=== PATIENT | male | born 1945 | race Caucasian/White ===

== ENCOUNTER 2022-05-02 11:08 | Day surgery (SDC) | payer MEDICARE, BC ==
[2022-04-27 12:04] LABS: BASOPHILS % (AUTO) 0.2 % (0-1); EOSINOPHILS # (AUTO) 0.1 X10'3 (0-0.9); EOSINOPHILS % (AUTO) 0.9 % (0-6); HEMATOCRIT 31.7 % (42.0-52.0); HEMOGLOBIN 9.9 g/dl (14.0-17.9); LYMPHOCYTES # (AUTO) 1.1 X10'3 (1.1-4.8); LYMPHOCYTES % (AUTO) 15.4 % (21-51); MEAN CORPUSCULAR HEMOGLOBIN 25.9 PG (27.0-31.0); MEAN CORPUSCULAR HGB CONC 31.1 g/dL (33.0-36.5); MEAN CORPUSCULAR VOLUME 83.1 FL (78-98); MEAN PLATELET VOLUME 7.1 FL (7.4-10.4); MONOCYTES # (AUTO) 0.4 X10'3 (0-0.9); MONOCYTES % (AUTO) 5.9 % (2-12); NEUTROPHILS # (AUTO) 5.4 X10'3 (1.8-7.7); NEUTROPHILS % (AUTO) 77.6 % (42-75); PLATELET COUNT 185 X10'3 (140-440); RED BLOOD COUNT 3.82 X10'6 (4.70-6.10); RED CELL DISTRIBUTION WIDTH 17.1 % (11.5-14.5)
[2022-04-27 12:18] LABS: APTT 25 SECONDS (22-32)
[2022-04-27 12:25] LABS: ALBUMIN 2.9 G/DL (3.4-5.0); ANION GAP 4 (8-16); BLOOD UREA NITROGEN 9 MG/DL (7-18); BUN/CREATININE RATIO 9.2 (5.4-32.0); CALCIUM 9.2 MG/DL (8.5-10.1); CHLORIDE 100 MMOL/L (99-107); CHOLESTEROL 159 MG/DL (0-200); CREATININE 0.98 MG/DL (0.60-1.10); GLUCOSE 87 MG/DL (70-104); HDL CHOLESTEROL 53 MG/DL (35-60); LDL CHOLESTEROL 94 MG/DL (50-100); POTASSIUM 3.9 MMOL/L (3.5-5.1); SODIUM 134 MMOL/L (135-145); TOTAL CARBON DIOXIDE 30.5 MMOL/L (24-32); TRIGLYCERIDES 87 MG/DL (20-135); eGFR 75 ML/MIN
[~2022-05-02] VITALS: Ht 175.3 cm; Wt 89.8 kg
[~2022-05-02 11:08] MED LIST: CITA-311 PO; ENZA40CA PO; GABA-530 PO; IRBE75TA8 PO
[2022-05-02 11:19] VITALS: BP 146/47
[2022-05-02] MEDS ORDERED: normal saline 1,000 ML IV SCH (11:40)
[2022-05-02] MEDS ORDERED: LORazepam 0.5 MG tablet PO PRN (11:40)
[2022-05-02] MEDS ORDERED: diphenhydrAMINE 25mg capsule PO PRN (11:40)
[2022-05-02] MEDS ORDERED: IRBE150T24 PO (11:46)
[2022-05-02] MEDS ORDERED: ESCI5TAB17 PO (11:46)
[2022-05-02] MEDS ORDERED: heparin 1,000unit/ml 10ml vial 10 ML ONE (12:25)
[2022-05-02] MEDS ORDERED: LIDOcaine 1% (10mg/ml) 2ml vial ONE (12:25)
[2022-05-02] MEDS ORDERED: iohexol 350MG/ML 100ml bottle IV ONE (12:25)
[2022-05-02] MEDS ORDERED: verapamil 2.5 mg/ml inj IV ONE (12:26)
[2022-05-02] MEDS ORDERED: nitroGLYCERIN-Tridil 50MG/D5W 250 ML IV ONE (12:26)
[2022-05-02] MEDS ORDERED: fentaNYL/PF 50MCG/1 ML 2ML syringe ONE (12:26)
[2022-05-02] MEDS ORDERED: midazolam 1 mg/ML 2ml injection ONE (12:26)
[2022-05-02 14:11] VITALS: BP 132/66
[2022-05-02] MEDS ORDERED: HYDROcodone/acetaminophen 10/325mg tab PO PRN (14:20)
[2022-05-02] MEDS ORDERED: HYDROcodone/acetaminophen 5mg/325mg tablet PO PRN (14:20)
[2022-05-02 14:30] VITALS: BP 141/67
[2022-05-02 14:45] VITALS: BP 127/69
[2022-05-02 15:00] VITALS: BP 113/54
[2022-05-02 15:19] VITALS: BP 136/80
[2022-05-03 06:29] LABS: ISTAT HGB ART 8.8 g/dl (14.0-17.9); ISTAT Hct ART 26 %PCV (42-52); ISTAT O2 SATURATION ARTERIAL 95 % (95-98); ISTAT SOURCE BLNK
[2022-05-03 06:29] LABS: ISTAT Hct MIX 28 %PCV (42-52); ISTAT O2 SATURATION MIX VENOUS 65 % (60-80); ISTAT SOURCE OTHER
== END 2022-05-02 16:10 | disposition home or self-care (01) ==
LOC: SSTAY O 11:08
PROVIDERS: ATTEND Student in an Organized Health Care Education/Training Program
DX: I35.0 Nonrheumatic aortic (valve) stenosis (principal); Z79.899 Other long term (current) drug therapy; I10 Essential (primary) hypertension; E11.9 Type 2 diabetes mellitus without complications; Z79.01 Long term (current) use of anticoagulants
CPT/HCPCS: 36415; 80048; 80061; 82803; 82948; 85014; 85025; 85610; 85730; 93005; 93456; 99152; 99153; C1769; C1894; J1644; J2250; J3010; J3490; J7030; Q0163; Q9967; A6258; A6402; C1751

== ENCOUNTER 2022-06-07 11:40 | Outpatient (CLI) | payer MEDICARE, BC ==
[~2022-06-07 11:40] MED LIST changes: -CITA-311 PO; +ESCI5TAB17 PO; +IRBE150T24 PO; -IRBE75TA8 PO
[2022-06-07 12:10] LABS: BASOPHILS % (AUTO) 0.6 % (0-1); EOSINOPHILS # (AUTO) 0.1 X10'3 (0-0.9); EOSINOPHILS % (AUTO) 1.6 % (0-6); HEMATOCRIT 37.3 % (42.0-52.0); HEMOGLOBIN 11.9 g/dl (14.0-17.9); LYMPHOCYTES % (AUTO) 17.1 % (21-51); MEAN CORPUSCULAR HGB CONC 31.9 g/dL (33.0-36.5); MEAN CORPUSCULAR VOLUME 84.7 FL (78-98); MEAN PLATELET VOLUME 7.2 FL (7.4-10.4); MONOCYTES # (AUTO) 0.4 X10'3 (0-0.9); MONOCYTES % (AUTO) 7.5 % (2-12); NEUTROPHILS # (AUTO) 4.2 X10'3 (1.8-7.7); NEUTROPHILS % (AUTO) 73.2 % (42-75); PLATELET COUNT 187 X10'3 (140-440); RED CELL DISTRIBUTION WIDTH 20.3 % (11.5-14.5); WHITE BLOOD COUNT 5.8 X10'3 (4.5-11.0)
[2022-06-07 12:21] LABS: APTT 27 SECONDS (22-32)
[2022-06-07 12:26] LABS: ALANINE AMINOTRANSFERASE 13 U/L (12-78); ALBUMIN 3.3 G/DL (3.4-5.0); ALBUMIN/GLOBULIN RATIO 0.7 (1.1-1.5); ALKALINE PHOSPHATASE 89 IU/L (46-116); ANION GAP 6 (8-16); ASPARTATE AMINO TRANSFERASE 24 U/L (10-37); BILIRUBIN,TOTAL 0.6 MG/DL (0.1-1.0); BLOOD UREA NITROGEN 7 MG/DL (7-18); BUN/CREATININE RATIO 7.3 (5.4-32.0); CALCIUM 8.7 MG/DL (8.5-10.1); CHLORIDE 100 MMOL/L (99-107); CREATININE 0.96 MG/DL (0.60-1.10); GLUCOSE 114 MG/DL (70-104); POTASSIUM 4.4 MMOL/L (3.5-5.1); SODIUM 136 MMOL/L (135-145); TOTAL CARBON DIOXIDE 30.2 MMOL/L (24-32); eGFR 76 ML/MIN
[2022-06-07] MEDS ORDERED: IODIXANOL 320 MG/ML INFUS..BTL 100ML IV ONE (12:52)
[2022-06-07 12:57] LABS: ANISOCYTOSIS 3+; PLATELET ESTIMATE NORMAL; TEAR DROP CELLS FEW
== END 2022-06-07 23:59 | disposition home or self-care (01) ==
LOC: RAD 11:40
PROVIDERS: ATTEND Internal Medicine Cardiovascular Disease
DX: N40.0 Benign prostatic hyperplasia without lower urinary tract symptoms (principal); R91.1 Solitary pulmonary nodule; R16.0 Hepatomegaly, not elsewhere classified; K76.0 Fatty (change of) liver, not elsewhere classified; N28.1 Cyst of kidney, acquired; I35.0 Nonrheumatic aortic (valve) stenosis; R06.02 Shortness of breath; I65.29 Occlusion and stenosis of unspecified carotid artery; I70.0 Atherosclerosis of aorta; I25.10 Atherosclerotic heart disease of native coronary artery without angina pectoris; R16.1 Splenomegaly, not elsewhere classified; K57.30 Diverticulosis of large intestine without perforation or abscess without bleeding; K40.90 Unilateral inguinal hernia, without obstruction or gangrene, not specified as recurrent; K42.9 Umbilical hernia without obstruction or gangrene; M47.815 Spondylosis without myelopathy or radiculopathy, thoracolumbar region; M47.817 Spondylosis without myelopathy or radiculopathy, lumbosacral region
CPT/HCPCS: 36415; 71046; 71275; 74174; 80053; 85008; 85025; 85610; 85730; 94010; 94727; 94729; J3490; Q9967; 82550; 82948; 96365; 96366; 96375; 99284; J2060; J3475; J7030

== ENCOUNTER 2022-06-07 15:14 | Emergency (ER) | payer MEDICARE, OTHER, BC ==
[2022-06-07] MEDS ORDERED: normal saline 1000ML IV soln IVB ONE (15:25)
[2022-06-07] MEDS ORDERED: magnesium 2GM in 50ml NS 50 ML IV ONE (15:25)
[2022-06-07] MEDS ORDERED: LORazepam 2 mg/ml vial IV ONE (15:25)
[2022-06-07 16:00] LABS: BASOPHILS % (AUTO) 0.3 % (0-1); EOSINOPHILS # (AUTO) 0.1 X10'3 (0-0.9); EOSINOPHILS % (AUTO) 2.1 % (0-6); HEMATOCRIT 35.7 % (42.0-52.0); HEMOGLOBIN 11.6 g/dl (14.0-17.9); LYMPHOCYTES # (AUTO) 0.9 X10'3 (1.1-4.8); LYMPHOCYTES % (AUTO) 19.5 % (21-51); MEAN CORPUSCULAR HEMOGLOBIN 27.4 PG (27.0-31.0); MEAN CORPUSCULAR HGB CONC 32.6 g/dL (33.0-36.5); MEAN PLATELET VOLUME 7.1 FL (7.4-10.4); MONOCYTES # (AUTO) 0.3 X10'3 (0-0.9); MONOCYTES % (AUTO) 6.3 % (2-12); NEUTROPHILS # (AUTO) 3.4 X10'3 (1.8-7.7); NEUTROPHILS % (AUTO) 71.8 % (42-75); PLATELET COUNT 176 X10'3 (140-440); RED BLOOD COUNT 4.25 X10'6 (4.70-6.10); RED CELL DISTRIBUTION WIDTH 19.8 % (11.5-14.5); WHITE BLOOD COUNT 4.8 X10'3 (4.5-11.0)
[2022-06-07 16:07] LABS: ALANINE AMINOTRANSFERASE 14 U/L (12-78); ALBUMIN 3.2 G/DL (3.4-5.0); ALBUMIN/GLOBULIN RATIO 0.7 (1.1-1.5); ALKALINE PHOSPHATASE 85 IU/L (46-116); ANION GAP 6 (8-16); ASPARTATE AMINO TRANSFERASE 16 U/L (10-37); BILIRUBIN,TOTAL 0.7 MG/DL (0.1-1.0); BLOOD UREA NITROGEN 6 MG/DL (7-18); BUN/CREATININE RATIO 6.7 (5.4-32.0); CALCIUM 8.9 MG/DL (8.5-10.1); CHLORIDE 97 MMOL/L (99-107); CREATININE 0.89 MG/DL (0.60-1.10); GLUCOSE 144 MG/DL (70-104); POTASSIUM 4.1 MMOL/L (3.5-5.1); SODIUM 133 MMOL/L (135-145); TOTAL CARBON DIOXIDE 29.6 MMOL/L (24-32); TOTAL PROTEIN 7.8 G/DL (6.4-8.2); eGFR 83 ML/MIN
[2022-06-07 16:08] LABS: CREATINE KINASE 34 U/L (39-308)
[2022-06-07 18:33] VITALS: BP 138/78
== END 2022-06-07 18:36 | disposition home or self-care (01) ==
LOC: ER 15:14
DX: G40.909 Epilepsy, unspecified, not intractable, without status epilepticus (principal); I10 Essential (primary) hypertension
CPT/HCPCS: 36415; 80053; 82550; 82948; 85025; 96365; 96366; 96375; 99284; J2060; J3475; J7030

== ENCOUNTER 2022-07-27 07:24 | Inpatient (IN) | payer MEDICARE, BC ==
[2022-07-21 15:29] LABS: BASOPHILS % (AUTO) 0.4 % (0-1); EOSINOPHILS # (AUTO) 0.1 X10'3 (0-0.9); EOSINOPHILS % (AUTO) 2.4 % (0-6); LYMPHOCYTES # (AUTO) 0.9 X10'3 (1.1-4.8); MEAN CORPUSCULAR HEMOGLOBIN 29.2 PG (27.0-31.0); MEAN CORPUSCULAR HGB CONC 32.9 g/dL (33.0-36.5); MEAN CORPUSCULAR VOLUME 88.7 FL (78-98); MEAN PLATELET VOLUME 6.9 FL (7.4-10.4); MONOCYTES # (AUTO) 0.3 X10'3 (0-0.9); MONOCYTES % (AUTO) 6.3 % (2-12); NEUTROPHILS # (AUTO) 3.3 X10'3 (1.8-7.7); NEUTROPHILS % (AUTO) 71.9 % (42-75); PRE OP HEMOGLOBIN 11.2 g/dL (14.0-17.9); PRE OP PLATELET COUNT 145 X10'3 (140-440); RED BLOOD COUNT 3.83 X10'6 (4.70-6.10)
[2022-07-21 15:36] LABS: PRE OP INR 1.1 INR; PRE OP PROTIME 11.4 SECONDS (9.0-12.0)
[2022-07-21 15:37] LABS: HEMOGLOBIN A1C 5.7 % (4.5-6.2)
[2022-07-21 15:38] LABS: ALBUMIN 3.2 G/DL (3.4-5.0); ALBUMIN/GLOBULIN RATIO 0.8 (1.1-1.5); ALKALINE PHOSPHATASE 71 IU/L (46-116); BLOOD UREA NITROGEN 11 MG/DL (7-18); BUN/CREATININE RATIO 14.7 (5.4-32.0); CALCIUM 9.4 MG/DL (8.5-10.1); CHLORIDE 102 MMOL/L (99-107); CREATININE 0.75 MG/DL (0.60-1.10); PRE OP ALT 11 U/L (30-65); PRE OP ANION GAP 4 (8-16); PRE OP AST 20 U/L (10-37); PRE OP BILIRUB, TOTAL 0.4 MG/DL (0.0-1.0); PRE OP GLUCOSE 82 MG/DL (70-104); PRE OP POTASSIUM 4.3 MMOL/L (3.4-5.1); PRE OP SODIUM 136 MMOL/L (135-145); TOTAL CARBON DIOXIDE 29.7 MMOL/L (24-32); TOTAL PROTEIN 7.4 G/DL (6.4-8.2); eGFR > 90 ML/MIN
[2022-07-27] VITALS (24 sets, daily range): BP systolic 112–148; BP diastolic 50–73
[~2022-07-27] VITALS: Ht 175.3 cm; Wt 88.1 kg
[~2022-07-27 07:24] MED LIST changes: +LIDOcaine 1% (10mg/ml) 2ml vial ONE; +MULT-1085 PO; +aspirin 325mg tablet PO ONE; +cefazolin 2gm/D5W 100mL 100 ML IV ONE; +famotidine 20mg tablet PO ONE; +nitroPRUSSIDE (NIPRIDE) (200MCG/ML) 100ML Drip IV SCH; +ondansetron/PF 4mg/2ml inj IV PRN; +phenylephrine inj 50 MG in normal saline 250ml IV solN IV SCH; +protamine sulfate 10mg/ml inj. ONE; +ringers solution, lacted 1,000 ML IV SCH; +vancomycin 1,500 MG in NS 300ml IV soln IV ONE
[2022-07-27] MEDS ORDERED: heparin 1,000 UNITS/NS 500ml 1,500 ML ONE (10:42)
[2022-07-27] MEDS ORDERED: LIDOcaine 1% 30ml preserv. free vial ONE (10:44)
[2022-07-27] MEDS ORDERED: iohexol 350MG/ML 100ml bottle IV ONE (10:45)
[2022-07-27] MEDS ORDERED: fentaNYL/PF 50MCG/1 ML 2ML syringe ONE (10:56)
[2022-07-27] MEDS ORDERED: midazolam 1 mg/ML 2ml injection ONE (10:56)
[2022-07-27] MEDS ORDERED: propofol inj 20 ML IV ONE (10:56)
[2022-07-27] MEDS ORDERED: heparin 1,000unit/ml 10ml vial 10 ML ONE (10:57)
[2022-07-27] MEDS ORDERED: LIDOcaine 2% (20mg/ml) 5ml vial ONE (11:00)
[2022-07-27] MEDS ORDERED: sevoflurane 250ml liquid IH ONE (11:00)
[2022-07-27] MEDS ORDERED: nitroPRUSSIDE sod inj. 50 MG in dextrose 5%-water 248 ML IV SCH (11:05)
[2022-07-27] MEDS ORDERED: ondansetron/PF 4mg/2ml inj IV PRN ×2 (11:05→12:10)
[2022-07-27] MEDS ORDERED: PHENYLephrine 10mg/ml inj. 100 MG in normal saline 250ml IV soln 240 ML IV SCH (11:05)
[2022-07-27] MEDS ORDERED: morphine 4 MG/ML inj SYRINge IV PRN (11:05)
[2022-07-27] MEDS ORDERED: morphine 2 MG/ML inj. syringe IV PRN (11:05)
[2022-07-27] MEDS ORDERED: ringers solution, lacted 1,000 ML IV SCH (11:05)
[2022-07-27] MEDS ORDERED: ePHEDrine 50MG/ML INJ. ONE (11:15)
[2022-07-27] MEDS ORDERED: docusate sod 100mg capsule PO PRN (12:10)
[2022-07-27] MEDS ORDERED: potassium CL 10mEq/100ml bag 100 ML IV PRN (12:10)
[2022-07-27] MEDS ORDERED: proCHLORperazine 10 MG/2 ml inj IV PRN (12:10)
[2022-07-27] MEDS ORDERED: potassium Cl 20 mEq SR tablet PO PRN (12:10)
[2022-07-27] MEDS ORDERED: potassium Cl 40MEQ/1/2NS 520ml 520 ML IV PRN (12:10)
[2022-07-27] MEDS ORDERED: hydrALAZINE 20mg/ml inj. IV PRN (12:10)
[2022-07-27] MEDS ORDERED: HYDROcodone/acetaminophen 5mg/325mg tablet PO PRN (12:10)
[2022-07-27] MEDS ORDERED: potassium Cl 20mEq/100mL bag 100 ML IV PRN (12:10)
[2022-07-27] MEDS ORDERED: acetaminophen 325mg tablet PO PRN (12:10)
[2022-07-27] MEDS ORDERED: diphenhydrAMINE 25mg capsule PO PRN (12:10)
[2022-07-27] MEDS ORDERED: magnesium 2GM in 50ml NS 50 ML IV PRN (12:10)
[2022-07-27] MEDS ORDERED: potassium Cl 40MEQ/270ML bag 250 ML IV PRN (12:10)
[2022-07-27] MEDS ORDERED: magnesium 4gm in 100ml NS 100 ML IV PRN (12:10)
[2022-07-27] MEDS ORDERED: ALPRAZolam 0.25mg tablet PO PRN (12:10)
[2022-07-27] MEDS ORDERED: pantoprazole 40mg Tablet.DR PO PRN (12:10)
[2022-07-27] MEDS ORDERED: labetalol 20mg/4ml (5mg/ml) syringe IV PRN (12:10)
--- NOTE | 2022-07-27 12:18 | NUR ---
Received from OR via BED, accompanied by Anesthesiologist DR. MEDRANO and report given by Anesthesiologist AND OR NURSE. PT ARRIVED DROWSY BUT ABLE TO RESPOND TO VERBAL STIMULI ON 8 L OF 02 VIA MASK. VSS. PT HAS 20 G IV TO LEFT AC AND ART LINE TO RIGHT WRIST AND PRESSURE DEVICE INTACT. PT HAS DRESSING TO BILATERAL GROIN THAT ARE C/D/I, NO SWELLING OR BLEEDING NOTED. LR AND NIPRIDE CURRENTLY RUNNING. NEURO ASSESSMENT COMPLETED. PUSH, PULL, OIL GAUGER, SMILE ALL WITHIN NORMAL LIMITS. BILATERAL PEDAL PULSES ARE NOTED VIA DOPPLER. VSS. LEFT CORNER LIPS LACERATION NOTED-APPLIED GAUZE TO AREA. SUPRAPIC GARRIDO CATHETER DRAINING CLEAR YELLOW URINE AND EMPTIED 350 CC OF URINE VIA LEG BAG . LEFT WRIST SOFT SPLINT DRESSING C/D/I. WILL CONTINUE TO MONITOR AND RECHECK GROIN SITES. Addendum: 07/27/22 at 1325 by Ean Ag RN Amended: Links added.
--- NOTE | 2022-07-27 13:30 | NUR ---
DISCONTINUED RIGHT RADIAL ARTLINE. HEMOSTATIS WAS OBTAINED AFTER 10 MINUTES WITH MANUAL PRESSURE. APPLIED GAUZE AND COBAN. PATIENT TOLERATED PROCEDURE WELL. NO S/S OF DISTRESS AT THIS TIME.
[2022-07-27] MEDS ORDERED: ASPI81TA53 PO (14:50)
--- NOTE | 2022-07-27 14:53 | NUR ---
PATIENT HAS MET ALL CRITERIA FOR TRANSFER TO PCU FLOOR. VSS. DRESSINGS INTACT. BED LOW, CALL LIGHT PRESENT AND 2 RAILS UP. RN PRESENT TO ACCEPT CARE OF PATIENT AND REPORT HAS BEEN CALLED. ALL QUESTIONS ANSWERED TO ACCEPTING RN. Addendum: 07/27/22 at 1459 by Ean Ag RN Amended: Links added.
--- NOTE | 2022-07-27 15:00 | NUR ---
Patient in room PCU 3016. I have received report from Manjeet MAGALLON and had the opportunity to ask questions and assume patient care. Patient arrived by hospital bed with RN x 1 and 1 x student nurse. V/S BP 142/70, HR 64, RR 20, SPO2 99% on O2 @ 2 LPM via nasal cannula, T-98.3F, Denies pain. Pt groin bilateral sites dressing C/D/I, no hematoma, Pt denies pain. Pt has soft cast to left arm, Pedal pulses palpable x 2, feet cool x 2, Pt stated this is his baseline. PT oriented to room, call light within reach. Pt educated he will able to get out of bed at 1800hrs with no compliacations.
[2022-07-27] MEDS: ceFAZolin 1GM/D5W- ADD-VANTAGE 50 ML IV SCH (16:39)
[2022-07-27] MEDS: sod chloride 0.9% 10ml flush syringe IV SCH (16:59)
[2022-07-27] MEDS: gabapentin 100mg capsule PO SCH (16:59)
--- NOTE | 2022-07-27 18:30 | NUR ---
Patient in room PCU 3016. I have received report from susanne lawson and had the opportunity to ask questions and assume patient care.
--- NOTE | 2022-07-27 19:17 | NUR ---
Problems reprioritized. Patient report given, questions answered & plan of care reviewed with Yessy CAMPBELL. Bedside report given. Groin access sites stable x 2, dressing C/D/I x 2.
[2022-07-27] MEDS ORDERED: ESCITALOPRAM OXALATE 5 MG TABLET PO SCH (21:00)
[2022-07-27] MEDS: normal saline 1000ml 1,000 ML IV SCH (22:10)
[2022-07-27] MEDS: vancomycin/NS 1 GM ADD-VANTAGE 250 ML IV SCH (22:28)
[2022-07-28] MEDS: ceFAZolin 1GM/D5W- ADD-VANTAGE 50 ML IV SCH ×2 (00:07→08:09)
[2022-07-28] MEDS: sod chloride 0.9% 10ml flush syringe IV SCH ×2 (00:07→08:38)
[2022-07-28] MEDS: gabapentin 100mg capsule PO SCH ×2 (00:44→08:36)
--- NOTE | 2022-07-28 01:34 | NUR ---
REVIEWED FUEL CELL ASSEMBLER ASSESSMENT AND IN AGREEMENT.
[2022-07-28 02:00] VITALS: BP 118/57
[2022-07-28] MEDS: normal saline 1000ml 1,000 ML IV SCH (03:49)
--- NOTE | 2022-07-28 06:03 | NUR ---
Problems reprioritized. Patient report given, questions answered & plan of care reviewed with Louis CAMPBELL.
--- NOTE | 2022-07-28 06:54 | NUR ---
Problems reprioritized. Patient report given, questions answered & plan of care reviewed with Yessy CAMPBELL. Groin sites x 2 C/D/I. suprapubic catheter care provided. Secured sweeney catheter with foam tape as per patient request. Sweeney emptied with 400 cc yellow urine with strong odor.
[2022-07-28 07:00] VITALS: BP 119/44
[2022-07-28] MEDS ORDERED: losartan 50mg tablet PO SCH (08:00)
[2022-07-28] MEDS ORDERED: I PO SCH (08:00)
[2022-07-28] MEDS ORDERED: aspirin 81mg tab.chew PO SCH (08:30)
[2022-07-28 09:00] LABS: BASOPHILS % (AUTO) 0.2 % (0-1); EOSINOPHILS # (AUTO) 0.1 X10'3 (0-0.9); EOSINOPHILS % (AUTO) 3.9 % (0-6); HEMATOCRIT 31.9 % (42.0-52.0); HEMOGLOBIN 10.6 g/dl (14.0-17.9); LYMPHOCYTES # (AUTO) 0.5 X10'3 (1.1-4.8); LYMPHOCYTES % (AUTO) 15.1 % (21-51); MEAN CORPUSCULAR HEMOGLOBIN 29.6 PG (27.0-31.0); MEAN CORPUSCULAR HGB CONC 33.1 g/dL (33.0-36.5); MEAN CORPUSCULAR VOLUME 89.3 FL (78-98); MEAN PLATELET VOLUME 7.4 FL (7.4-10.4); MONOCYTES # (AUTO) 0.2 X10'3 (0-0.9); MONOCYTES % (AUTO) 6.9 % (2-12); NEUTROPHILS # (AUTO) 2.2 X10'3 (1.8-7.7); NEUTROPHILS % (AUTO) 73.9 % (42-75); PLATELET COUNT 90 X10'3 (140-440); RED BLOOD COUNT 3.57 X10'6 (4.70-6.10); RED CELL DISTRIBUTION WIDTH 17.3 % (11.5-14.5)
[2022-07-28 09:37] LABS: ALANINE AMINOTRANSFERASE 9 U/L (12-78); ALBUMIN 2.8 G/DL (3.4-5.0); ALBUMIN/GLOBULIN RATIO 0.8 (1.1-1.5); ALKALINE PHOSPHATASE 68 IU/L (46-116); ANION GAP 4 (8-16); ASPARTATE AMINO TRANSFERASE 29 U/L (10-37); BILIRUBIN,TOTAL 0.4 MG/DL (0.1-1.0); BLOOD UREA NITROGEN 9 MG/DL (7-18); CALCIUM 8.6 MG/DL (8.5-10.1); CHLORIDE 102 MMOL/L (99-107); CREATININE 0.82 MG/DL (0.60-1.10); GLUCOSE 219 MG/DL (70-104); MAGNESIUM 1.6 MG/DL (1.5-2.4); SODIUM 136 MMOL/L (135-145); TOTAL PROTEIN 6.5 G/DL (6.4-8.2); eGFR > 90 ML/MIN
[2022-07-28] MEDS: vancomycin/NS 1 GM ADD-VANTAGE 250 ML IV SCH (10:05)
[2022-07-28 11:00] VITALS: BP 122/57
--- NOTE | 2022-07-28 14:26 | NUR ---
All written and verbal instructions provided. All questions answered. PIV discontinued. Telebox discontinued. Groin access sites stable ASB no bleeding, no edema, no hematoma. All belongings packed by patient and his significant other. Pt ambulated downstairs to lobby via wheelchair. Addendum: 07/28/22 at 1606 by Louis Claudio LVN Amended: Links added. Addendum: 07/28/22 at 1607 by Louis Claudio LVN Pt appointments prescheduled and reviewed with patient. Pt and significant other verbalized understanding.
--- NOTE | 2022-07-28 17:39 | NUR ---
I AGREE WITH ANAID DIRECTOR LEARNING ASSESSMENT.
== END 2022-07-28 14:26 | disposition home or self-care (01) | DRG 266 ==
LOC: PAS IN 07:24 → EDSTATUS 09:30 → PCU 3S 15:15
PROVIDERS: ADMIT Internal Medicine Cardiovascular Disease; ATTEND Internal Medicine Cardiovascular Disease
PROC: B41D1ZZ Fluoroscopy of Aorta and Bilateral Lower Extremity Arteries using Low Osmolar Contrast (ICD-10-PCS; 2022-07-27)
PROC: 02RF38Z Replacement of Aortic Valve with Zooplastic Tissue, Percutaneous Approach (ICD-10-PCS; principal; 2022-07-27 11:00)
DX: I35.0 Nonrheumatic aortic (valve) stenosis (principal); Z00.6 Encounter for examination for normal comparison and control in clinical research program; I50.43 Acute on chronic combined systolic (congestive) and diastolic (congestive) heart failure; E11.9 Type 2 diabetes mellitus without complications; E78.5 Hyperlipidemia, unspecified; G40.909 Epilepsy, unspecified, not intractable, without status epilepticus; I10 Essential (primary) hypertension; Z20.822 Contact with and (suspected) exposure to COVID-19; Z85.46 Personal history of malignant neoplasm of prostate; Z85.841 Personal history of malignant neoplasm of brain; Z98.2 Presence of cerebrospinal fluid drainage device; Z79.899 Other long term (current) drug therapy; I11.0 Hypertensive heart disease with heart failure
CPT/HCPCS: 33361; 36415; 71045; 71046; 76937; 80053; 82948; 83036; 83735; 83880; 85025; 85347; 85610; 85730; 86885; 86900; 86901; 86920; 87081; 93005; 93308; A4615; A4618; A5200; A6258; A6449; C1756; C1760; C1769; C1892; C1894; G0378; J0690; J1644; J2250; J2370; J2704; J2720; J3010; J3370; J3490; J7030; J7040; J7050; J7120; Q9967